=== PATIENT | male | born 1990 | race African-American/Black ===

== ENCOUNTER 2021-08-27 18:22 | Emergency (ER) | payer OTHER ==
[2021-08-27 18:37] VITALS: BP 111/60; PULSE 65; TEMP 98.3; BMI 24.6
[2021-08-27] MEDS ORDERED: IBUPROFEN 400 MG TABLET (FP) PO ONE ×2 (19:30→19:57)
[2021-08-27] MEDS ORDERED: ACETAMINOPHEN 325 MG TABLET (FP) PO ONE (19:30)
[2021-08-27] MEDS ORDERED: LIDOCAINE 5% TOPICAL PATCH TP ONE ×2 (19:30→20:05)
[2021-08-27] MEDS ORDERED: LIDOCAINE 5% TOPICAL PATCH ONE ×2 (19:58→20:42)
[2021-08-27] MEDS ORDERED: ACETAMINOPHEN 325 MG TABLET (FP) ONE (19:58)
[2021-08-27] MEDS ORDERED: LIDOCAINE PATCH REMOVAL MC SCH ×2 (22:00)
== END 2021-08-27 20:46 | disposition home or self-care (01) ==
LOC: JER 18:22
DX: R07.89 Other chest pain (principal); M54.89 Other dorsalgia
CPT/HCPCS: 93005; 93010; 99283-25